=== PATIENT | female | born 1980 | race Caucasian/White ===

== ENCOUNTER 2024-04-02 10:03 | Day surgery (SDC) | payer BC ==
[2024-03-30 11:29] VITALS: BMI 27.9
[2024-04-02 11:35] VITALS: RESP 16; TEMP 97.5
[2024-04-02 12:19] VITALS: BP 102/67; PULSE 68
== END 2024-04-02 12:10 | disposition home or self-care (01) ==
LOC: FASU-ENDO 10:03
PROVIDERS: ATTEND Internal Medicine Gastroenterology
PROC: 0DJD8ZZ Inspection of Lower Intestinal Tract, Via Natural or Artificial Opening Endoscopic (ICD-10-PCS; principal; 2024-04-02 10:54)
DX: Z12.11 Encounter for screening for malignant neoplasm of colon (principal); K64.1 Second degree hemorrhoids; K64.8 Other hemorrhoids
CPT/HCPCS: 81025